=== PATIENT | male | born 2000 | race Caucasian/White ===

== ENCOUNTER 2018-05-17 22:04 | Emergency (ER) | payer MEDICAID, OTHER ==
[2018-05-17] MEDS ORDERED: TORAdol 30 mg Injection IM ONE (22:50)
[2018-05-17] MEDS ORDERED: Phenergan 25 MG INJ IM ONE (22:50)
--- NOTE | 2018-05-17 22:50 | ERPHSYRPT ---
- History of Present Illness Time Seen by Provider: 05/17/18 22:47 Source: patient, family Exam Limitations: no limitations Patient Subjective Stated Complaint: pt has been treating strep throat for approx 3 dyas; states he has had a headache along with the sore throat since onset 3 days ago and is unable to rest or sleep very much d/t pain and tylenol is not helping. Triage Nursing Assessment: pt a&o x3; skin p, w, & d; ambulated to room per self ; no acute ditress noted; family/friend at bedside. Physician History: The patient is a 17-year-old male with his family complaining that he has a headache for 3 days. He wants treatment for the headache. He was diagnosed 3 days ago with strep pharyngitis and has been placed on amoxicillin. He is also hoping that the treatment for the headache will also help his sore throat. He' s complained of fevers for a couple days. He is here primarily because he wants relief from the headache so he can sleep tonight. Timing/Duration: day(s) (3), gradual onset, worse Quality: aching Head Pain Location: frontal Severity of Pain-Max: moderate Severity of Pain-Current: moderate Recent Head Trauma: no recent headache/trauma Associated Symptoms: No nausea/vomiting Previous symptoms: no prior history Allergies/Adverse Reactions: No Known Drug Allergies Allergy (Verified 05/17/18 22:29) Home Medications: Amoxicillin/Potassium Clav [Amox-Clav 875-125 mg Tablet] 1 tab PO BID 05/17/18 [ History] Hx Tetanus, Diphtheria Vaccination/Date Given: Yes Hx Influenza Vaccination/Date Given: Yes (2016) Hx Pneumococcal Vaccination/Date Given: No Immunizations Up to Date: Yes - Review of Systems Constitutional: No Fever, No Chills Eyes: No Symptoms Ears, Nose, & Throat: Throat Pain Respiratory: No Cough, No Dyspnea Cardiac: No Chest Pain, No Edema, No Syncope Abdominal/Gastrointestinal: No Abdominal Pain, No Nausea, No Vomiting, No Diarrhea Genitourinary Symptoms: No Dysuria Musculoskeletal: No Back Pain, No Neck Pain Skin: No Rash Neurological: Headache Psychological: No Symptoms Endocrine: No Symptoms Hematologic/Lymphatic: No Symptoms Immunological/Allergic: No Symptoms All Other Systems: Reviewed and Negative - Past Medical History Pertinent Past Medical History: Yes Respiratory History: Asthma - Past Surgical History Past Surgical History: No - Social History Smoking Status: Former smoker Exposure to second hand smoke: No Drug Use: none Patient Lives Alone: No - Nursing Vital Signs Nursing Vital Signs: Initial Vital Signs Temperature 100.3 F 05/17/18 22:21 Pulse Rate 96 H 05/17/18 22:21 Respiratory Rate 18 05/17/18 22:21 Blood Pressure 132/89 05/17/18 22:21 O2 Sat by Pulse Oximetry 99 05/17/18 22:21 Pain Scale Pain Intensity 4 - Physical Exam General Appearance: no apparent distress Eye Exam: PERRL/EOMI Ears, Nose, Throat Exam: moist mucous membranes, tonsillar exudate Neck Exam: normal inspection, supple, full range of motion, No meningismus Respiratory Exam: normal breath sounds, lungs clear Cardiovascular Exam: regular rate/rhythm, normal heart sounds Gastrointestinal/Abdominal Exam: soft, No tenderness, No distention Back Exam: normal inspection, normal range of motion Extremity Exam: normal inspection Mental Status Exam: alert, oriented x 3, cooperative community case manager Exam: normal speech, PERRL, No facial droop Coordination/Gait Exam: normal cerebellar function Motor/Sensory Exam: no motor deficit, no sensory deficit Skin Exam: normal color, warm, dry, No rash SpO2 Interpretation: normal SpO2: 99 Oxygen Delivery: Room Air - Progress Progress: improved Blood Culture(s) Obtained: No Antibiotics given: No Counseled pt/family regarding: diagnosis - Departure Time of Disposition: 22:51 Departure Disposition: Home Clinical Impression: Headache Condition: Stable Critical Care Time: No Referrals: ALEXIS PAULA MD [Primary Care Provider] - Additional Instructions: You have a headache and a sore throat. You were given Toradol 60 mg and Phenergan 50 mg by IM in the ER. Take naproxen 500 mg 2 times a day as needed. Continue taking the amoxicillin as previously prescribed. Gargle with warm salt water as often as needed for comfort. Follow-up with your primary medical doctor on Sunday if needed. Prescriptions: Naproxen 500 mg PO BID PRN #30 tablet
[2018-05-17] MEDS ORDERED: TORAdol 30 mg Injection ONE (22:55)
[2018-05-17] MEDS ORDERED: Phenergan 25 MG INJ ONE (22:55)
[2018-05-17 23:24] VITALS: BP 144/86; PULSE 89; O2SAT 97
== END 2018-05-17 23:23 | disposition home or self-care (01) ==
LOC: ED 22:04
DX: R51 Headache (principal)
CPT/HCPCS: 96372; 99284; J1885; J2550

== ENCOUNTER 2021-03-21 11:25 | Emergency (ER) | payer OTHER ==
--- NOTE | 2021-03-21 11:31 | ERPHSYRPT ---
- History of Present Illness Time Seen by Provider: 03/21/21 11:31 Source: patient Exam Limitations: no limitations Physician History: This is a 20-year-old white male who was playing football yesterday evening and jammed his finger. His fifth finger on his left hand is tender and swollen is difficult for him to bend it. He is here to obtain an x-ray. Occurred: yesterday Quality: constant, aching Severity of Pain-Max: mild Severity of Pain-Current: mild Extremities Pain Location: 5th finger: left Modifying Factors: Improves With: movement Associated Symptoms: none Allergies/Adverse Reactions: No Known Drug Allergies Allergy (Verified 05/17/18 22:29) Home Medications: No Reportable Medications [No Reported Medications] 03/21/21 [History] Hx Tetanus, Diphtheria Vaccination/Date Given: Yes Hx Influenza Vaccination/Date Given: Yes (2016) Hx Pneumococcal Vaccination/Date Given: No Travel Risk - International Travel Have you traveled outside of the country in past 3 weeks: No - Coronavirus Screening Are you exhibiting any of the following symptoms?: No Close contact with a COVID-19 positive Pt in past 14-21 Days: No - Review of Systems Constitutional: No Symptoms Eyes: No Symptoms Ears, Nose, & Throat: No Symptoms Respiratory: No Symptoms Cardiac: No Symptoms Abdominal/Gastrointestinal: No Symptoms Genitourinary Symptoms: No Symptoms Musculoskeletal: Injury (Left fifth digit) Skin: No Symptoms Neurological: No Symptoms Endocrine: No Symptoms Hematologic/Lymphatic: No Symptoms Immunological/Allergic: No Symptoms All Other Systems: Reviewed and Negative - Past Medical History Pertinent Past Medical History: Yes Neurological History: No Pertinent History ENT History: No Pertinent History Cardiac History: No Pertinent History Respiratory History: Asthma Endocrine Medical History: No Pertinent History Musculoskeletal History: No Pertinent History GI Medical History: No Pertinent History History: No Pertinent History Psycho-Social History: No Pertinent History Male Reproductive Disorders: No Pertinent History - Past Surgical History Past Surgical History: No - Social History Smoking Status: Former smoker Exposure to second hand smoke: No Drug Use: none Patient Lives Alone: No - Nursing Vital Signs Nursing Vital Signs: Initial Vital Signs Temperature 97.4 F 03/21/21 11:29 Pulse Rate 60 03/21/21 11:29 Respiratory Rate 18 03/21/21 11:29 Blood Pressure 121/76 03/21/21 11:29 O2 Sat by Pulse Oximetry 96 03/21/21 11:29 Pain Scale Pain Intensity 5 - Physical Exam General Appearance: no apparent distress, alert Eyes, Ears, Nose, Throat Exam: normal ENT inspection, moist mucous membranes Neck Exam: normal inspection, non-tender, supple, full range of motion Cardiovascular/Respiratory Exam: chest non-tender, no respiratory distress Abdominal Exam: non-tender Back Exam: normal inspection, normal range of motion, No CVA tenderness, No vertebral tenderness Shoulder Exam: normal inspection, non-tender, no evidence of injury, normal ROM Elbow/Forearm Exam: normal inspection, non-tender, no evidence of injury, normal ROM Wrist Exam: normal inspection, non-tender, no evidence of injury, normal ROM Hand Exam: bone tenderness (Left fifth digit), limited ROM (Left fifth digit), soft tissue tenderness, swelling Neuro/Tendon Exam: normal sensation, normal motor functions, normal tendon functions Mental Status Exam: alert, oriented x 3, cooperative Skin Exam: normal color, warm, dry SpO2 Interpretation: normal O2 Delivery: Room Air - Course Nursing assessment & vital signs reviewed: Yes Ordered Tests: Active Orders 24 hr Category Date Time Status HAND (MINIMUM 3 VIEWS) Stat Exams 03/21/21 11:34 Completed - Progress Progress: unchanged, pain not gone completely Progress Note: 03/21/21 12:04 X-ray of left hand shows an avulsion fracture at the proximal aspect of the left fifth middle phalanx Counseled pt/family regarding: diagnosis, need for follow-up, rad results - Departure Departure Disposition: Home Clinical Impression: Avulsion fracture of middle phalanx of finger Condition: Stable Critical Care Time: No Referrals: ALEXIS PAULA MD [Primary Care Provider] - Additional Instructions: Wear splint for comfort. Ice to area 3 times a day for the next 48 hours. Use Tylenol and ibuprofen for pain control. May follow-up with [facility] orthopedic walk-in clinic Sunday through Sunday 8 AM to 10 AM for persistent symptoms.
[2021-03-21 11:35] VITALS: BP 121/76; PULSE 60; O2SAT 96
--- NOTE | 2021-03-21 11:56 | XRAY ---
Indication: Pain following football injury. Comparison: None 3 view left hand obtained. No bony, articular, or soft tissue abnormalities.
== END 2021-03-21 12:17 | disposition home or self-care (01) ==
LOC: ED 11:25
DX: S62.623A Displaced fracture of middle phalanx of left middle finger, initial encounter for closed fracture (principal); W23.0XXA Caught, crushed, jammed, or pinched between moving objects, initial encounter; Y93.61 Activity, american tackle football; Y92.89 Other specified places as the place of occurrence of the external cause
CPT/HCPCS: 73130; 99283

== ENCOUNTER 2021-12-25 14:22 | Emergency (ER) | payer OTHER ==
[2021-12-25 15:23] VITALS: BP 120/85; PULSE 64; O2SAT 99
--- NOTE | 2021-12-25 15:31 | ERPHSYRPT ---
- History of Present Illness Time Seen by Provider: 12/25/21 15:27 Source: patient, family Patient Subjective Stated Complaint: PATIENT STATES THAT HE HAS HAD BACK PAIN FOR A COUPLE MONTHS AND IT HAS GOTTEN WORSE. PATIENT STATES THAT IT IS HARD TO DO HIS JOB FROM THE BACK PAIN. PAIN STARTS AT THE TOP OF HIS BACK AND THEN RADIATES DOWN HIS SPINE Triage Nursing Assessment: PATIENT AXO x3. PATIENT LUNGS CLEAR THROUGHOUT, BOWEL SOUNDS PRESENT, PATIENT SKIN CDI, DENIES ANY SOB OR CHEST PAIN. Physician History: pt has several months of back pain no work up. no wt loss, no fever, no IV drug use , No instrumentation of back, No numbness or weakness or bowel/bladder symptoms. Chest clear, abd nontender. no trauma or fall. Timing/Duration: week(s), intermittent Method of Injury: other (none known) Quality: dull, aching Back Pain Location: T-spine, lumbar spine Severity of Pain-Max: moderate Severity of Pain-Current: moderate Allergies/Adverse Reactions: No Known Drug Allergies Allergy (Verified 05/17/18 22:29) Hx Tetanus, Diphtheria Vaccination/Date Given: Yes Hx Influenza Vaccination/Date Given: Yes (2016) Hx Pneumococcal Vaccination/Date Given: No Travel Risk - International Travel Have you traveled outside of the country in past 3 weeks: No - Coronavirus Screening Are you exhibiting any of the following symptoms?: No Close contact with a COVID-19 positive Pt in past 14-21 Days: No - Vaccine Status Have you recieved a Covid-19 vaccination: No - Review of Systems Constitutional: No Fever, No Chills Eyes: No Symptoms Ears, Nose, & Throat: No Symptoms Respiratory: No Cough, No Dyspnea Cardiac: No Chest Pain, No Edema, No Syncope Abdominal/Gastrointestinal: No Abdominal Pain, No Nausea, No Vomiting, No Diarrhea Genitourinary Symptoms: No Dysuria Musculoskeletal: Back Pain, No Neck Pain, No Fall Skin: No Rash Neurological: No Dizziness, No Focal Weakness, No Headache, No Sensory Changes Psychological: No Symptoms Endocrine: No Symptoms All Other Systems: Reviewed and Negative - Past Medical History Pertinent Past Medical History: Yes Neurological History: No Pertinent History ENT History: No Pertinent History Cardiac History: No Pertinent History Respiratory History: Asthma Endocrine Medical History: No Pertinent History Musculoskeletal History: No Pertinent History GI Medical History: No Pertinent History History: No Pertinent History Psycho-Social History: No Pertinent History Male Reproductive Disorders: No Pertinent History - Past Surgical History Past Surgical History: No - Social History Smoking Status: Current every day smoker Exposure to second hand smoke: No Drug Use: marijuana Patient Lives Alone: No - Nursing Vital Signs Nursing Vital Signs: Initial Vital Signs Temperature 97.5 F 12/25/21 14:23 Pulse Rate 64 12/25/21 14:23 Respiratory Rate 16 12/25/21 14:23 Blood Pressure 120/85 12/25/21 14:23 O2 Sat by Pulse Oximetry 99 12/25/21 14:23 Pain Scale Pain Intensity 6 - Physical Exam General Appearance: no apparent distress, alert Eye Exam: PERRL/EOMI, eyes nml inspection Ears, Nose, Throat Exam: normal ENT inspection Neck Exam: normal inspection, non-tender, supple, full range of motion, No meningismus, No midline tenderness Respiratory Exam: normal breath sounds, lungs clear, No respiratory distress Cardiovascular Exam: regular rate/rhythm, normal heart sounds Gastrointestinal Exam: soft, No tenderness, No mass Rectal Exam: deferred Back Exam: normal inspection, normal range of motion, muscle spasm, No CVA tenderness, No vertebral tenderness Extremity Exam: normal inspection, normal range of motion, No calf tenderness, No pedal edema Peripheral Pulses: carotid (R): 2+, carotid (L): 2+, femoral (R): 2+, femoral (L): 2+, dorsalis-pedis (R): 2+, dorsalis-pedis (L): 2+ Neurologic Exam: alert, oriented x 3, cooperative, lokie engineer II-XII nml as tested, normal mood/affect, nml station & gait, sensation nml, No motor deficits Skin Exam: normal color, warm, dry, No rash SpO2 Interpretation: normal SpO2: 99 O2 Delivery: Room Air - Course Nursing assessment & vital signs reviewed: Yes - Radiology Exams Chest X-ray Interpretation: Reviewed by me, Other (some increased bronchial markings) Ordered Tests: Active Orders 24 hr Category Date Time Status CHEST 2 VIEWS (PA AND LAT) Stat Exams 12/25/21 15:50 Taken Medication Summary Discontinued Medications Generic Name Dose Route Start Last Admin Trade Name Freq PRN Reason Stop Dose Admin Ketorolac Tromethamine 60 mg 12/25/21 15:32 12/25/21 15:46 Ketorolac Tromethamine 30 Mg/Ml Inj IM 12/25/21 15:33 60 mg STAT ONE Administration Ketorolac Tromethamine Confirm 12/25/21 15:43 Ketorolac Tromethamine 30 Mg/Ml Inj Administered 12/25/21 15:44 Dose 30 mg .ROUTE .STK-MED ONE Ketorolac Tromethamine Confirm 12/25/21 15:46 Ketorolac Tromethamine 30 Mg/Ml Inj Administered 12/25/21 15:47 Dose 30 mg .ROUTE .STK-MED ONE - Progress Progress: improved, re-examined Counseled pt/family regarding: lab results, diagnosis, need for follow-up, rad results - Departure Departure Disposition: Home Clinical Impression: Thoracolumbar back pain Condition: Good Critical Care Time: No Referrals: ALEXIS PAULA MD [Primary Care Provider] - Follow up/PCP as directed Instructions: Low Back Pain (DC), Upper Back Pain (DC), Back Muscle Strain Additional Instructions: We did not do the urine since you have had no symptoms and the area of pain is away from the kidney and bladder. use over the counter alleve or tylenol and lidocaine patches/icyhot. Follow-up with your Dr. for further workup possibly MRI. return meantime if any concerns, numbness or weakness, bladder symptoms, fever, short of breath chest pain or other . Prescriptions: Cyclobenzaprine HCl 10 mg [Cyclobenzaprine 10 MG] 10 mg PO HS PRN PRN #10 tablet PRN Reason: Pain
[2021-12-25] MEDS ORDERED: TORAdol 30 mg Injection IM ONE (15:32)
[2021-12-25] MEDS ORDERED: TORAdol 30 mg Injection ONE ×2 (15:43→15:46)
--- NOTE | 2021-12-25 21:13 | XRAY ---
Indication: Back pain. No known injury. Comparison: May 23, 2010. PA/lateral chest again demonstrates normal heart and lungs. Bony thorax intact. No new/acute findings.
== END 2021-12-25 17:18 | disposition home or self-care (01) ==
LOC: ED 14:22
DX: M54.6 Pain in thoracic spine (principal); M54.50 Low back pain, unspecified; Z72.0 Tobacco use
CPT/HCPCS: 71046; 96372; 99284; J1885

== ENCOUNTER 2022-02-07 01:21 | Emergency (ER) | payer OTHER ==
[2022-02-07] MEDS ORDERED: TORAdol 30 mg Injection IM ONE (01:33)
--- NOTE | 2022-02-07 01:34 | ERPHSYRPT ---
- History of Present Illness Time Seen by Provider: 02/07/22 01:33 Source: patient Physician History: Patient is a 21-year-old male presents to emergency department for evaluation of pain to his left testicle. Pain started approximately an hour prior to arrival. Patient states he was driving to work while he was sitting in his car pain began. No trauma. Pain described as an ache that is localized. No radiation. Patient states his left testicle is tender to touch. No abdominal pain. No nausea or vomiting. No fever. No rash. No penile discharge. Patient denies penile lesions. Patient states is otherwise healthy. He voices no other complaints or concerns at this time. Portions of this note were created with voice recognition technology. There may be grammatical, spelling, punctuation or sound alike errors Timing/Duration: today Activites at Onset: none Quality: aching Onset Location: other (Left testicle) Pain Radiation: none Severity of Pain-Max: moderate Severity of Pain-Current: mild Modifying Factors: Improves With: nothing Associated Symptoms: denies symptoms Prior abdominal problems: none Sexual intercourse history: non-contributory Allergies/Adverse Reactions: No Known Drug Allergies Allergy (Verified 02/07/22 01:39) Hx Tetanus, Diphtheria Vaccination/Date Given: Yes Hx Influenza Vaccination/Date Given: Yes (2016) Hx Pneumococcal Vaccination/Date Given: No Travel Risk - Vaccine Status Have you recieved a Covid-19 vaccination: No - Past Medical History Pertinent Past Medical History: Yes Neurological History: No Pertinent History ENT History: No Pertinent History Cardiac History: No Pertinent History Respiratory History: Asthma Endocrine Medical History: No Pertinent History Musculoskeletal History: No Pertinent History GI Medical History: No Pertinent History History: No Pertinent History Psycho-Social History: No Pertinent History Male Reproductive Disorders: No Pertinent History - Past Surgical History Past Surgical History: No - Social History Smoking Status: Former smoker Exposure to second hand smoke: No Drug Use: none Patient Lives Alone: No - Review of Systems Constitutional: No Symptoms, No Fever, No Chills Eyes: No Symptoms Ears, Nose, & Throat: No Symptoms Respiratory: No Symptoms, No Cough, No Dyspnea Cardiac: No Symptoms, No Chest Pain, No Edema, No Syncope Abdominal/Gastrointestinal: No Symptoms, No Abdominal Pain, No Nausea, No Vomiting, No Diarrhea Genitourinary Symptoms: No Symptoms, No Dysuria Musculoskeletal: No Symptoms, No Back Pain, No Neck Pain Skin: No Symptoms, No Rash Neurological: No Symptoms, No Dizziness, No Focal Weakness, No Sensory Changes Psychological: No Symptoms Endocrine: No Symptoms Hematologic/Lymphatic: No Symptoms Immunological/Allergic: No Symptoms All Other Systems: Reviewed and Negative - Nursing Vital Signs Nursing Vital Signs: Initial Vital Signs Temperature 97.0 F 02/07/22 01:26 Pulse Rate 98 H 02/07/22 01:26 Respiratory Rate 18 02/07/22 01:26 Blood Pressure 146/106 02/07/22 01:26 O2 Sat by Pulse Oximetry 98 02/07/22 01:26 Pain Scale Pain Intensity 3 - Physical Exam General Appearance: no apparent distress, alert Eye Exam: PERRL/EOMI Ears, Nose, Throat Exam: normal ENT inspection, TMs normal, pharynx normal, moist mucous membranes Neck Exam: normal inspection, supple, full range of motion Respiratory Exam: normal breath sounds, lungs clear, airway intact Cardiovascular Exam: regular rate/rhythm, normal heart sounds, normal peripheral pulses, No edema Gastrointestinal/Abdomen Exam: soft, normal bowel sounds, No tenderness, No guarding Male Genital Exam: normal genitalia, scrotum tenderness (L) (Left scrotal tenderness to palpation) Back Exam: normal inspection, No CVA tenderness Extremity Exam: normal inspection, normal range of motion, No pedal edema Neurologic Exam: alert, oriented x 3, cooperative, sensation nml, No motor deficits Skin Exam: normal color, warm, dry, No rash SpO2 Interpretation: normal O2 Delivery: Room Air - Course Nursing assessment & vital signs reviewed: Yes - Radiology Ultrasound Exam Scrotal Ultrasound: discussed w/radiologist (Negative for torsion.) Ordered Tests: Active Orders 24 hr Category Date Time Status TESTICLE [US] Stat Exams 02/07/22 01:30 Ordered UA W/RFX CULTURE Stat Lab 02/07/22 01:40 Completed Medication Summary Discontinued Medications Generic Name Dose Route Start Last Admin Trade Name Freq PRN Reason Stop Dose Admin Ketorolac Tromethamine 30 mg 02/07/22 01:33 02/07/22 01:42 Ketorolac Tromethamine 30 Mg/Ml Inj IM 02/07/22 01:34 30 mg STAT ONE Administration Ketorolac Tromethamine Confirm 02/07/22 01:42 Ketorolac Tromethamine 30 Mg/Ml Inj Administered 02/07/22 01:43 Dose 30 mg .ROUTE .STK-MED ONE Lab/Rad Data: Laboratory Results 02/07/22 Range/Units 01:40 Urinalys Dipstick Clnc MAIN LAB Urine Color YELLOW (YELLOW) Urine Appearance CLEAR (CLEAR) Urine pH 7.0 (5-6) Ur Specific [place] >=1.030 (1.005-1.025) POC Urine Protein Conf NEGATIVE (Negative) Urine Ketones >=160 (NEGATIVE) Urine Nitrite NEGATIVE (NEGATIVE) Urine Bilirubin SMALL (NEGATIVE) Urine Urobilinogen 1 (0-1) mg/dL Urine Leukocytes NEGATIVE (NEGATIVE) Urine WBC (Auto) 3-5 (0-5) /HPF Urine RBC (Auto) NONE (0-2) /HPF Urine Bacteria (Auto) RARE (NEGATIVE) /HPF Urine RBC NEGATIVE (0-5) Nikita/ul Urine Mucus (Auto) SLIGHT (NEGATIVE) /HPF Ur Culture Indicated? NO Urine Glucose NEGATIVE (NEGATIVE) mg/dL - Progress Progress: improved Progress Note: Patient reassessed. He is comfortable. Patient received Toradol IM for pain control. Scrotal ultrasound negative for torsion. UA negative for UTI GC chlamydia negative. No indication for further work-up at this time. Will discharge home. Patient agrees to follow-up with primary care doctor within 48 hours for evaluation. Portions of this note were created with voice recognition technology. There may be grammatical, spelling, punctuation or sound alike errors 02/07/22 02:26 Counseled pt/family regarding: lab results, diagnosis, need for follow-up, rad results - Departure Departure Disposition: Home Clinical Impression: Testicular pain, left, Ketonuria Condition: Stable Critical Care Time: No Referrals: ALEXIS PAULA MD [Primary Care Provider] - Follow up/PCP as directed Additional Instructions: Discharge/Care Plan HA COLEMAN was seen on 02/07/22 in the Emergency Room. The patient was counseled regarding Diagnosis,Lab results, Imaging studies, need for follow up and when to return to the Emergency Room. Prescriptions given: Discharge Note I have spoken with the patient and/or caregivers. I have explained the patient's condition, diagnosis and treatment plan based on the information available to me at this time. I have answered the patient's and/or caregiver's questions and addressed any concerns. The patient and/or caregivers have as good understanding of the patient's diagnosis, condition and treatment plan as can be expected at this point. The vital signs have been stable. The patient's condition is stable and appropriate for discharge from the emergency department. The patient will pursue further outpatient evaluation with the primary care physician or other designated or consulting physician as outlined in the discharge instructions. The patient and/or caregivers are agreeable to this plan of care and follow-up instructions have been explained in detail. The patient and/or caregivers have received these instruction. The patient/and or caregivers are aware that any significant change in condition or worsening of symptoms should prompt an immediate return to this or the closest emergency department or call 911.
[2022-02-07] MEDS ORDERED: TORAdol 30 mg Injection ONE (01:42)
[2022-02-07 01:59] LABS: Bacteria RARE /HPF (NEGATIVE); Mucus SLIGHT /HPF (NEGATIVE)
[2022-02-07 02:00] LABS: Appearance CLEAR (CLEAR); Bilirubin SMALL (NEGATIVE); Glucose NEGATIVE (NEGATIVE); Ketones >=160 (NEGATIVE); Nitrite NEGATIVE (NEGATIVE); Protein,Urine Dip NEGATIVE (Negative); RBC NEGATIVE Ery/ul (0-5); Specific Gravity >=1.030 (1.005-1.025); Urobilinogen 1 mg/dL (0-1)
[2022-02-07 02:01] LABS: Dipstick done @ ? MAIN LAB; Urine Cultured Indicated? NO
[2022-02-07 02:38] VITALS: BP 140/88; PULSE 90; O2SAT 97
[2022-02-07 03:26] LABS: CHLAMYDIA DNA NOT DETECTED (NEGATIVE); GC DNA Probe NOT DETECTED (NEGATIVE)
--- NOTE | 2022-02-07 08:49 | XRAY ---
Indication: Left testicle pain. Two-dimensional testicular sonogram performed. Comparison: September 19, 2013. Again both testicles are homogeneous in echogenicity with normal perfusion. Right testicle measures 4.3 x 2.1 x 3.5 cm and the left measures 3.5 x 2.2 x 3.3 cm. Left and right epididymis are bilaterally symmetric and unremarkable. No suspicious extratesticular mass or hydrocele. Impression: Negative testicular sonogram. Comment: Preliminary report was given.
== END 2022-02-07 02:35 | disposition home or self-care (01) ==
LOC: ED 01:21
DX: N50.812 Left testicular pain (principal); R82.4 Acetonuria; Z28.310 Unvaccinated for COVID-19
CPT/HCPCS: 76870; 81015; 87491; 87591; 96372; 99283; J1885

== ENCOUNTER 2022-03-14 22:01 | Emergency (ER) | payer OTHER ==
[2022-03-14] MEDS ORDERED: TORAdol 30 mg Injection ONE (23:11)
[2022-03-14] MEDS: TORAdol 30 mg Injection IM ONE (23:12)
[2022-03-14 23:29] VITALS: O2SAT 99
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
[2022-03-15 00:08] VITALS: BP 137/87; PULSE 73
--- NOTE | 2022-03-15 09:39 | XRAY ---
Indication: Pain. No known injury. Comparison: None AP/lateral spine centered at thoracolumbar junction demonstrates minimal levoscoliosis centered at L1. No other bony, articular, or soft tissue abnormalities.
== END 2022-03-15 00:14 | disposition home or self-care (01) ==
LOC: ED 22:01
DX: S39.012A Strain of muscle, fascia and tendon of lower back, initial encounter (principal); G89.29 Other chronic pain; M54.6 Pain in thoracic spine; Z28.310 Unvaccinated for COVID-19
CPT/HCPCS: 72080; 96372; 99283; J1885